=== PATIENT | female | born 1940 | race Caucasian/White ===

== ENCOUNTER 2017-10-08 14:04 | Outpatient (CLI) | payer BC ==
--- NOTE | 2017-10-08 18:00 | XRAY Report ---
TWO VIEW RIGHT CALCANEUS: 10/08/2017 CLINICAL INDICATION: Pain, edema. FINDINGS: Frontal and lateral views of the right calcaneus demonstrate plantar and posterior calcaneal spurring. There is no evidence of fracture. The joint spaces appear unremarkable. IMPRESSION: PLANTAR AND POSTERIOR CALCANEAL SPURRING. TD: 10/08/2017 14:55
== END 2017-10-08 14:05 | disposition home or self-care (01) ==
LOC: DI 14:04
PROVIDERS: ATTEND Podiatrist
DX: M77.31 Calcaneal spur, right foot (principal)

== ENCOUNTER 2023-01-22 15:02 | Outpatient (CLI) | payer MEDICARE, OTHER ==
--- NOTE | 2023-01-23 01:36 | Ultrasound Report ---
PROCEDURE: Duplex Lwr Ext Arterial Bilat INDICATIONS: PAIN IN GREAT TOES, NON PALPABLE PULSES LT TECHNIQUE: Color and pulse Doppler interrogation was performed of both lower extremity arterial systems, with im age documentation. COMPARISON: None. FINDINGS: Normal-appearing, triphasic and biphasic waveforms are seen. No focal increased flow velocity is seen to suggest a hemodynamically significant stenosis. No significant grayscale abnormality is seen. IMPRESSION: No hemodynamically significant stenosis is detected. Reviewed by: Dandre Heaton MD on 01/23/2023 12:35 AM RONNY Approved by: Dandre Heaton MD on 01/23/2023 12:35 AM RONNY Station ID: [id number]
== END 2023-01-22 15:03 | disposition home or self-care (01) ==
LOC: DI 15:02
PROVIDERS: ATTEND Podiatrist
DX: M79.675 Pain in left toe(s) (principal); R09.89 Other specified symptoms and signs involving the circulatory and respiratory systems
CPT/HCPCS: 93925